=== PATIENT | male | born 1945 ===

== ENCOUNTER 2017-07-01 12:55 | Emergency (ER) | payer MEDICARE ==
[~2017-07-01] VITALS: Ht 182.9 cm; Wt 102.1 kg
[2017-07-01] MEDS ORDERED: LEVO-T175 MCG PO (13:04)
[2017-07-01] MEDS ORDERED: ATOR20 PO (13:05)
[2017-07-01] MEDS ORDERED: METO100ER PO (13:05)
[2017-07-01] MEDS ORDERED: INSULANPEN SC (13:05)
[2017-07-01] MEDS ORDERED: Dyazide 37.5-21 EACH PO (13:05)
[2017-07-01] MEDS ORDERED: Metformin HCl1000 MG PO (13:05)
[2017-07-01] MEDS ORDERED: BUTALB-ACETAMI1 EAC2 PO (13:05)
[2017-07-01] MEDS ORDERED: GLIP10ER PO (13:06)
[2017-07-01] MEDS ORDERED: AMLO5 PO (13:06)
[2017-07-01] MEDS ORDERED: Valium5 MG PO (13:41)
[2017-07-01] MEDS ORDERED: Norco 5-325 Ta1 EACH PO (13:41)
[2017-07-01] MEDS ORDERED: HYDCOR10 PO (13:42)
== END 2017-07-01 14:00 | disposition home or self-care (01) ==
LOC: ER 12:55
DX: G89.29 Other chronic pain (principal); M54.5 Low back pain; E11.9 Type 2 diabetes mellitus without complications; I10 Essential (primary) hypertension; F41.9 Anxiety disorder, unspecified; E78.00 Pure hypercholesterolemia, unspecified; G43.909 Migraine, unspecified, not intractable, without status migrainosus; E03.9 Hypothyroidism, unspecified; Z88.2 Allergy status to sulfonamides; Z79.4 Long term (current) use of insulin; Z79.899 Other long term (current) drug therapy; Z96.652 Presence of left artificial knee joint
CPT/HCPCS: 96372; 99283; J1885

== ENCOUNTER 2017-07-12 10:41 | Emergency (ER) | payer MEDICARE ==
[~2017-07-12] VITALS: Ht 182.9 cm; Wt 102.1 kg
[~2017-07-12 10:41] MED LIST: AMLO5 PO; ATOR20 PO; BUTALB-ACETAMI1 EAC2 PO; Dyazide 37.5-21 EACH PO; GLIP10ER PO; HYDCOR10 PO; INSULANPEN SC; LEVO-T175 MCG PO; METO100ER PO; Metformin HCl1000 MG PO; Norco 5-325 Ta1 EACH PO; Valium5 MG PO
[2017-07-12] MEDS ORDERED: Prednisone20 MG PO (12:45)
[2017-07-12] MEDS ORDERED: Norco 5-325 Ta1 EACH PO (12:45)
== END 2017-07-12 13:31 | disposition home or self-care (01) ==
LOC: ER 10:41
DX: M54.16 Radiculopathy, lumbar region (principal); Z88.2 Allergy status to sulfonamides; Z79.899 Other long term (current) drug therapy; Z79.84 Long term (current) use of oral hypoglycemic drugs; Z79.4 Long term (current) use of insulin; E11.9 Type 2 diabetes mellitus without complications; I10 Essential (primary) hypertension; E78.00 Pure hypercholesterolemia, unspecified; F41.9 Anxiety disorder, unspecified; G43.909 Migraine, unspecified, not intractable, without status migrainosus
CPT/HCPCS: 96372; 99283; J1885

== ENCOUNTER → 2018-08-07 | Outpatient (CLI) | payer MEDICARE ==
[~2018-08-07] MED LIST changes: +Prednisone20 MG PO
== END | disposition home or self-care (01) ==
LOC: PLD 13:36 → LAB SHORT 13:36
DX: C43.61 Malignant melanoma of right upper limb, including shoulder (principal); D22.62 Melanocytic nevi of left upper limb, including shoulder
CPT/HCPCS: 88305

== ENCOUNTER → 2018-08-27 | Outpatient (CLI) | payer MEDICARE | END | disposition home or self-care (01) | LOC: LAB SHORT 07:48 → PLD 07:48 | DX: D22.62 Melanocytic nevi of left upper limb, including shoulder (principal) | CPT/HCPCS: 88305 ==

== ENCOUNTER 2020-06-15 18:42 | Emergency (ER) | payer MEDICARE ==
[~2020-06-15] VITALS: Ht 182.9 cm; Wt 106.6 kg
[~2020-06-15 18:42] MED LIST changes: -AMLO5 PO; -ATOR20 PO; -BUTALB-ACETAMI1 EAC2 PO; -Dyazide 37.5-21 EACH PO; -LEVO-T175 MCG PO; -METO100ER PO; -Metformin HCl1000 MG PO
[2020-06-15 20:48] LABS: BASOPHILS ABSOLUTE AUTO 0.01 K/mm3 (0.00-0.23); BASOPHILS PERCENT AUTO 0 % (0-2); EOSINOPHILS PERCENT AUTO 0 % (0-6); Hematocrit 39.7 % (37.0-53.0); Hemoglobin 13.9 g/dL (13.5-17.5); IMMATURE GRAN ABSOLUTE AUTO 0.04 K/mm3 (0.00-0.10); IMMATURE GRAN PERCENT AUTO 1 % (0-1); LYMPHOCYTES ABSOLUTE AUTO 0.99 K/mm3 (0.84-5.20); LYMPHOCYTES PERCENT AUTO 12 % (21-46); MONOCYTES ABSOLUTE AUTO 0.58 K/mm3 (0.16-1.47); MONOCYTES PERCENT AUTO 7 % (4-13); Mean Corpuscular HGB 31.5 pg (26.0-34.0); Mean Corpuscular Volume 90 fL (80-100); NEUTROPHILS ABSOLUTE AUTO 6.85 K/mm3 (1.96-9.15); NEUTROPHILS PERCENT AUTO 81 % (41-73); Platelet Count 129 K/mm3 (150-400); RDW Coefficient Variation 12.9 % (11.7-14.2); RDW Standard Deviation 42.6 fL (35.1-46.3); Red Blood Cell Count 4.41 M/mm3 (4.30-5.90); White Blood Cell Count 8.47 K/mm3 (4.00-11.30)
[2020-06-15] MEDS ORDERED: SILD25T PO (20:49)
[2020-06-15 21:04] LABS: Alanine Aminotransfer (ALT/SGP 28 U/L (12-78); Albumin, Blood 3.2 g/dL (3.4-5.0); Albumin/Globulin Ratio 0.8 (0.8-1.8); Alk Phos 93 U/L (50-136); Anion Gap 11 mmol/L (6-16); Aspartate Aminotrans (AST/SGOT 15 U/L (12-37); Bilirubin, Total 0.6 mg/dL (0.1-1.0); Blood Urea Nitrogen 18 mg/dL (8-24); Bun/Creatinine Ratio 25.6 (12.0-20.0); CO2, Blood 25 mmol/L (21-32); Calcium, Blood 9.2 mg/dL (8.5-10.1); Chloride, Blood 96 mmol/L (98-108); Globulin, Blood 4.1 g/dL (2.2-4.0); Glomerular Filtration Rate >60 (60-); Glucose, Blood 219 mg/dL (70-99); Potassium, Blood 3.3 mmol/L (3.5-5.5); Sodium, Blood 132 mmol/L (136-145); Total Protein, Blood 7.3 g/dL (6.4-8.2)
[2020-06-15 22:27] LABS: Source, Urine Voided
[2020-06-15 22:31] LABS: Bilirubin, Urine Neg (Neg); Blood, Urine Neg (Neg); Glucose Qualitative, Urine 2+ (Neg); Ketones, Urine 1+ (Neg); Leukocyte Esterase, Urine Neg (Neg); Nitrite, Urine Neg (Neg); Protein, Urine 2+ (Neg); Specific Gravity, Urine 1.005 (1.003-1.022); Urobilinogen, Urine NORM (Normal)
[2020-06-15 22:34] LABS: Appearance, Urine Clear (Clear); Color, Urine Yellow (P-Yellow)
[2020-06-15 22:44] LABS: Amorphous Light (0-Heavy); Bacteria Not Seen /hpf; Red Blood Cells, Urine Not Seen /hpf (0-2); Squamous Epithelial Cells Not Seen /hpf (Few); White Blood Cells, Urine Not Seen /hpf (0-5)
[2020-06-16] MEDS ORDERED: Zithromax250 MG PO (01:01)
[2020-06-16] MEDS ORDERED: OMEP20ER PO (01:01)
== END 2020-06-16 01:28 | disposition home or self-care (01) ==
LOC: ER 18:42
PROVIDERS: Emergency Medicine
DX: U07.1 COVID-19 (principal); J12.82 Pneumonia due to coronavirus disease 2019; K29.80 Duodenitis without bleeding; E27.9 Disorder of adrenal gland, unspecified; E11.65 Type 2 diabetes mellitus with hyperglycemia; E87.6 Hypokalemia; I10 Essential (primary) hypertension; E78.5 Hyperlipidemia, unspecified; E03.9 Hypothyroidism, unspecified; R91.8 Other nonspecific abnormal finding of lung field; R79.89 Other specified abnormal findings of blood chemistry; Z79.4 Long term (current) use of insulin; Z79.899 Other long term (current) drug therapy; Z88.2 Allergy status to sulfonamides; Z79.52 Long term (current) use of systemic steroids
CPT/HCPCS: 36415; 71045; 74177; 76705; 80053; 81001; 83605; 83690; 85025; 87040; 96361; 96365; 96366; 96367; 96368; 96375; 99285-25; A9270; J0456; J0696; J2405; J3480; J7030; J7050; Q9967

== ENCOUNTER 2020-06-18 14:07 | Inpatient (IN) | payer MEDICARE ==
[~2020-06-18] VITALS: Ht 182.9 cm; Wt 102.1 kg
[~2020-06-18 14:07] MED LIST changes: +OMEP20ER PO; +SILD25T PO; +Zithromax250 MG PO
[2020-06-18 14:58] LABS: BASOPHILS ABSOLUTE AUTO 0.02 K/mm3 (0.00-0.23); BASOPHILS PERCENT AUTO 0 % (0-2); EOSINOPHILS ABSOLUTE AUTO 0.01 K/mm3 (0.00-0.68); EOSINOPHILS PERCENT AUTO 0 % (0-6); Hematocrit 39.8 % (37.0-53.0); Hemoglobin 14.2 g/dL (13.5-17.5); IMMATURE GRAN ABSOLUTE AUTO 0.11 K/mm3 (0.00-0.10); IMMATURE GRAN PERCENT AUTO 1 % (0-1); LYMPHOCYTES PERCENT AUTO 8 % (21-46); MONOCYTES ABSOLUTE AUTO 0.73 K/mm3 (0.16-1.47); MONOCYTES PERCENT AUTO 5 % (4-13); Mean Corpuscular HGB 32.4 pg (26.0-34.0); Mean Corpuscular HGB Conc 35.7 g/dL (31.5-36.5); Mean Corpuscular Volume 91 fL (80-100); Mean Platelet Volume 10.1 fL (9.1-12.4); NEUTROPHILS ABSOLUTE AUTO 11.55 K/mm3 (1.96-9.15); NEUTROPHILS PERCENT AUTO 86 % (41-73); Platelet Count 200 K/mm3 (150-400); RDW Coefficient Variation 12.8 % (11.7-14.2); Red Blood Cell Count 4.38 M/mm3 (4.30-5.90); White Blood Cell Count 13.42 K/mm3 (4.00-11.30)
[2020-06-18 15:19] LABS: Alanine Aminotransfer (ALT/SGP 36 U/L (12-78); Albumin, Blood 3.1 g/dL (3.4-5.0); Albumin/Globulin Ratio 0.7 (0.8-1.8); Alk Phos 93 U/L (50-136); Anion Gap 10 mmol/L (6-16); Aspartate Aminotrans (AST/SGOT 42 U/L (12-37); Bilirubin, Total 0.7 mg/dL (0.1-1.0); Blood Urea Nitrogen 17 mg/dL (8-24); Bun/Creatinine Ratio 20.1 (12.0-20.0); CO2, Blood 26 mmol/L (21-32); Calcium, Blood 9.6 mg/dL (8.5-10.1); Chloride, Blood 93 mmol/L (98-108); Creatinine, Blood 0.85 mg/dL (0.60-1.20); Globulin, Blood 4.6 g/dL (2.2-4.0); Glomerular Filtration Rate >60 (60-); Glucose, Blood 183 mg/dL (70-99); Potassium, Blood 3.1 mmol/L (3.5-5.5); Sodium, Blood 129 mmol/L (136-145); Total Protein, Blood 7.7 g/dL (6.4-8.2)
[2020-06-18] MEDS ORDERED: OMEP20ER PO (17:38)
[2020-06-18] MEDS ORDERED: LEVEMIR100 UNIT/1 SC (17:38)
[2020-06-18] MEDS ORDERED: HUMALOG KW100 UNIT/1 SC (17:38)
[2020-06-18] MEDS ORDERED: METO100ER PO (17:52)
[2020-06-18] MEDS ORDERED: LEVO-T175 MCG PO (17:52)
[2020-06-18] MEDS ORDERED: GLUCOPHAGE1000 M1 PO (17:53)
[2020-06-18] MEDS ORDERED: Dyazide 37.5-21 EACH PO (17:54)
[2020-06-18] MEDS ORDERED: BUTALB-ACETAMI1 EAC5 PO (17:54)
[2020-06-18] MEDS ORDERED: AMLO5 PO (17:54)
[2020-06-18] MEDS ORDERED: GABA300 PO (17:54)
[2020-06-18] MEDS ORDERED: ATOR20 PO (17:54)
[2020-06-18] MEDS ORDERED: Aspir 8181 MG PO (17:55)
[2020-06-18] MEDS ORDERED: LOSARTAN POTAS100 M1 PO (17:55)
[2020-06-18] MEDS ORDERED: POTA10T PO (17:56)
[2020-06-19 05:03] LABS: BASOPHILS ABSOLUTE AUTO 0.02 K/mm3 (0.00-0.23); BASOPHILS PERCENT AUTO 0 % (0-2); EOSINOPHILS PERCENT AUTO 0 % (0-6); Hematocrit 37.3 % (37.0-53.0); IMMATURE GRAN ABSOLUTE AUTO 0.11 K/mm3 (0.00-0.10); IMMATURE GRAN PERCENT AUTO 1 % (0-1); LYMPHOCYTES ABSOLUTE AUTO 1.07 K/mm3 (0.84-5.20); LYMPHOCYTES PERCENT AUTO 10 % (21-46); MONOCYTES ABSOLUTE AUTO 0.39 K/mm3 (0.16-1.47); MONOCYTES PERCENT AUTO 4 % (4-13); Mean Corpuscular HGB 31.7 pg (26.0-34.0); Mean Corpuscular HGB Conc 34.9 g/dL (31.5-36.5); Mean Corpuscular Volume 91 fL (80-100); Mean Platelet Volume 9.8 fL (9.1-12.4); NEUTROPHILS ABSOLUTE AUTO 9.03 K/mm3 (1.96-9.15); NEUTROPHILS PERCENT AUTO 85 % (41-73); Platelet Count 198 K/mm3 (150-400); RDW Coefficient Variation 12.8 % (11.7-14.2); RDW Standard Deviation 42.6 fL (35.1-46.3); White Blood Cell Count 10.62 K/mm3 (4.00-11.30)
--- NOTE | 2020-06-19 05:17 | NUR ---
SHIFT SUMMARY PT ARRIVED TO UNIT FROM ED VIA STRETCHER @ 1724. PT TRANSFERRED STAND/PIVOT TO BED. PT IS A&O X4, SBA/IND, USES URINAL AT BEDSIDE. MEDICATED X1 FOR HEADACHE, OTHERWISE NO OTHER COMPLAINTS THIS SHIFT. PT IS LAYING IN BED WITH EYES CLOSED, EVEN AND UNLABORED RESPIRATIONS. BED IN LOWERED POSITION WITH SIDE RAILS UP X2 FOR SAFETY. CALL LIGHT AND PERSONAL ITEMS WITH IN REACH. NO APPARENT NEEDS OR DISTRESS AT THIS TIME, WILL CONTINUE TO MONITOR UNTIL REPORT GIVEN TO DAY RN.
[2020-06-19 05:23] LABS: Anion Gap 9 mmol/L (6-16); Blood Urea Nitrogen 12 mg/dL (8-24); Bun/Creatinine Ratio 14.7 (12.0-20.0); CO2, Blood 27 mmol/L (21-32); Calcium, Blood 8.8 mg/dL (8.5-10.1); Chloride, Blood 96 mmol/L (98-108); Creatinine, Blood 0.82 mg/dL (0.60-1.20); Glomerular Filtration Rate >60 (60-); Glucose, Blood 169 mg/dL (70-99); Potassium, Blood 3.2 mmol/L (3.5-5.5); Sodium, Blood 132 mmol/L (136-145)
--- NOTE | 2020-06-19 08:00 | NUR ---
0730 JOE RT IN ROOM. PT HAD LOWER SATS . PLACED ON 4L O2. KEEPING OVER 92 %.. STARTED ON I/S AND FLUTTER VALVE. CALLED DR ORNELAS TO [facility]. SHE TO REVIEW. NO NEW ORDRES.
--- NOTE | 2020-06-19 08:30 | NUR ---
PT PLEASANT COOP A/O. LOVES TO TALK HUNTING CABIN IN [facility]. SHOWED ME PIX ON PHONE. DENIES PAIN AND . HR REG, NO MURMER NOTED. NO TELE. LUNGS DIM T/O WITH CRACKLES BASES BILAT. ON 4L O2 PER JOE. RT. TRAINED ON I/S AND FLUTTER VALVE. RESP EASY, UNLABORED. BT X4 LAST BM YEST. VOIDS PER URINAL. 1 ASST NEEDED. BED IN LOW POSITION, CALL LITE IN REACH, CALLS APPROP.
--- NOTE | 2020-06-19 10:25 | NUR ---
ADMIT:06/18/20 DISCHARGE: DX:Pneumonia due to COVID-19 virus, hypokalemia, hyponatremia, nausea/vomiting, diarrhea CC: JOEY CALL: RESIDENCE: Home with Spouse CAREGIVER: Jeanna Coker, Spouse / Partner, Fátima Coker Sister In Law, Family Member, DX: COVID-19; CVA, HTN, see list DME: DM supplies CCM: none HOME HEALTH: none SUMMARY: 06/19/20- per chart review with Dr. Connor, pt came in due to inability to keep food down. He has since developed a need for O2 and is currently on 4L due to hypoxia related to COVID. Doctor will be add steroid treatment today. Est. ETA for d/c will be sometime this weekend as long as pt's need for O2 does not increase. -kjw 1: Pneumonia due to COVID-19 virus A/P: Patient is not hypoxic so does not need COVID-a9 medications at this time. Patient was initially diagnosed on the , no improvement since then concerning for superimposed bacterial infection. Procalcitonin 0.11. Patient meets sepsis criteria with lactic acid at 2.1, white blood cells 13.42. - Continuous pulse oximetry - Ceftriaxone and azithromycin IV for now, patient has not been able to keep down his azithromycin pills he was sent home on 3 days ago. - Blood cultures obtained - Sepsis focused exam has been performed - IV fluids 30 cc/kg - Droplet isolation 2: Hypokalemia A/P: Along with hyponatremia and hypophosphatemia. Mg WNL. Due to N/V/D. - Replaced - BMP in AM - Aggressive nausea control - IV hydration 3: Diarrhea A/P: - GI panel - IV hydration 4: Hypothyroidism A/P: - Continue home medications 5: GERD (gastroesophageal reflux disease) A/P: - Pepcid IV BID, change to PO once able to keep meds down 6: Essential hypertension A/P: - Hold home BIRGIT inhibitor and dyazide due to hypovolemia - Continue home metoprolol and amlodipine 7: T2DM (type 2 diabetes mellitus) A/P: - Continue home levemir. - Blood glucose checks and low sliding scale subcutaneous Humalog before meals - As needed hypoglycemia treatment - Diabetic diet - Hold home oral agents while in hospital 8: Prophylactic use of low molecular weight heparin for venous thromboembolism
--- NOTE | 2020-06-19 16:12 | NUR ---
SAT IN ROOM AND VISITED WITH ON PHONE AND WITH HIM ABOUT MIKI ASTORGA
--- NOTE | 2020-06-19 16:23 | NUR ---
PT PLEASANT TODAY. I NOTE THAT SATS ARE MOSTLY ABOVE 94 % ON 4L O2. ENCOURAGED TO CONTINUE USE OF I/S AND FLUTTER. WE VISITED COUPLE TIMES ABOUT HUNTING . [facility]. SPOKE TO HIS FOR UPDATE. SHE STATES HE SLOWER MENTATION THAN NORMAL. NO OTHER CONCERNS NOTED TODAY. BED IN LOW POSITION, CALL LITE IN REACH, CALLS APPROP
--- NOTE | 2020-06-20 07:37 | NUR ---
SHIFT SUMMARY: PATIENT IS A&OX3, LUNGS ARE CLEAR BUT DIMINISHED AT BASES. SATS ARE 90-95% ON 4L NC, 88% ON RA AFTER AMB. TO THE BATHROOM, VSS. UP TO THE BATHROOM WITH A STAND BY ASSIST TO VOID. NO COMPLAINTS OF PAIN, BED ALARM IS ON FOR SAFETY.
[2020-06-20 08:53] LABS: Anion Gap 8 mmol/L (6-16); Blood Urea Nitrogen 18 mg/dL (8-24); Bun/Creatinine Ratio 24.1 (12.0-20.0); CO2, Blood 27 mmol/L (21-32); Calcium, Blood 9.1 mg/dL (8.5-10.1); Chloride, Blood 99 mmol/L (98-108); Creatinine, Blood 0.75 mg/dL (0.60-1.20); Glomerular Filtration Rate >60 (60-); Glucose, Blood 267 mg/dL (70-99); Potassium, Blood 3.5 mmol/L (3.5-5.5); Sodium, Blood 134 mmol/L (136-145)
--- NOTE | 2020-06-20 19:12 | NUR ---
SHIFT SUMMARY PT A/O X3; PLEASANT AND COOPERATIVE WITH CARE. INSULIN ADJUSTED TO HIGH SLIDING SCARE. STOOL SAMPLE NEEDED. PT CURRENTLY ON 5 LITERS O2 VIA NC. DYSPNEA ON EXERTION. DROPPED DOWN TO 88% WITH AMBULATION AND EXTENSIVE TALKING. SBA TO THE BATHROOM. VSS; WILL REPORT TO LABORER DRYING DEPARTMENT RN.
--- NOTE | 2020-06-21 06:53 | NUR ---
SHIFT SUMMARY: PATIENT IS A&OX4, CONTINUES TO REPORT HALLUCINATIONS BUT DESCRIBES THEM TO THIS DOG BOARDER WITH GREAT DETAIL LIKE HE WAS TELLING A STORY TO SOMEONE. BED ALARM REMAINS ON FOR SAFETY, PATIENT CALLS FOR ASSIST TO THE BATHROOM INSTRUCTED, FOR SAFETY. O2 WAS DECREASED TO 4L NC, MAINTAINS SATS 90-95%. AFTER AMBULATION SAT IS 95% ON 4L. PATIENT REQUESTED TO HAVE BLOOD GLUCOSE TAKEN WITH HIS GLUCOMETER DUE TO PAINFUL LANCETTS. PATIENT USED HIS OWN GLUCOMETER TO MEASURE HS GLUCOSE WHICH WAS 345, LONG ACTING INSULIN WAS GIVEN PER JUL. AFTER SPEAKING WITH PATIENT IT IS DECIDED THAT WE WILL USE THE [facility] GLUCOMETER AND HIS LANCETTS GOING FORWARD. ENHANCED ISOLATION PRECAUTIONS ARE MAINTAINED.
--- NOTE | 2020-06-21 12:41 | NUR ---
SUMMARY: 06/21/20- per chart review with Dr. Connor, pt's O2 needs have dropped to .5L. As long as the patient keeps progressing in a positive way, his ETA for d/c could be Monday or . -dirk
--- NOTE | 2020-06-21 19:42 | NUR ---
SHIFT SUMMARY PT A/O X3 PLEASANT AND COOPERATIVE WITH CARE. CURRENTLY ON 4 LITERS O2 VIA NC. SOMETIMES DE-SATS WITH AMBULATION. PT IS A SBA BUT UNSTEADY ON HIS FEET AT TIMES. PT REPORTS ODD HALLUCINATIONS AND DREAMS. TAKES HIS OWN BLOOD GLUCOSE WITH HIS HOME EQUIPMENT. VSS; REPORT GIVEN TO DOCUMENT MANAGEMENT SPECIALIST RN.
--- NOTE | 2020-06-22 06:02 | NUR ---
SHIFT SUMMARY: PATIENT IS A&OX4 BUT FORGETFUL AT TIMES. BP'S HAVE BEEN TRENDING UPWARDS, ENERGY ATTORNEY MD IS NOTIED AND ORDER TO RESTART [place], HOME MEDICATION WAS OBTAINED AND MED WAS GIVEN WITH GOOD EFFECT. PATIENT REQUESTED SEROQUEL FOR INSOMNIA AND MED WAS GIVEN. DURING THE NIGHT PATIENT WAS FOUND SETTING OFF BED ALARM, WITH GOWNED AND 02 OFF WITH SATS AT 85 ON RA. PATIENT TOOK ABOUT 5 MINUTES TO RECOVER UP TO 93% ON 4 L NC. PATIENT THEN TRIED TO USE URINAL AT BEDSIDE AND URINATED ON THE FLOOR. PATIENT IS NOW RESTING QUIETLY IN BED.
--- NOTE | 2020-06-22 16:55 | NUR ---
06/22/[address] Rivas, possible discharge today, patient still on oxygen, sats 92%. Not being seen by PT or OT. Dr Rivas ordered home oxygen evaluation today, s/w Jeanna by phone, she is covid positive, only symptom is a rash. She can pick him up from hospital, pharmacy has a drive up window. She is placeing a food order with Alistair Worthington to [employer] tommorrow. She would like for him to be able to get himself to the bathroom before returning home. Will continue to follow for discharge planning. cp
--- NOTE | 2020-06-22 18:30 | NUR ---
SHIFT SUMMARY- PT IS A/O, PLESANT AND COOPERATIVE. HE IS EATING AND DRINKING WELL. HE IS ON 4 L HUMIDIFIED O2. HE TOOK A SHOWER THIS SHIFT. PLANNING DISCHARGE TOMORROW, WILL RECIEVE A HOME O2 EVALUATION PRIOR TO DISCHARGE. HIS BED IS IN THE LOW POSITION AND CALL LIGHT IS WITHIN REACH.
--- NOTE | 2020-06-23 04:11 | NUR ---
RETAIL SERVICE REPRESENTATIVE SUMMARY PT WAS AXO X4 ALL SHIFT W O2 SATS >92 ON 2L VIA NC. PT CONTINUES TO USE IS AND FLUTTER DEVICE. PT DENIED ANY PAIN OR NAUSEA THIS SHIFT. SEROQUEL WAS NOT GIVEN THIS SHIFT AND PT HAD NO HALLUCINATIONS TONIGHT. PT EDUCATED ON MEDICATIONS AND NEED FOR INCREASED INSULIN HE WAS UPSET THAT HIS HOME DOSES WERE BEING CHANGED IN THE HOSPITAL. PT SLEEPING COMFORTABLY WITH CALL LIGHT WITHIN REACH. TM
[2020-06-23] MEDS ORDERED: PRED20 PO (13:05)
--- NOTE | 2020-06-23 15:00 | NUR ---
PT DISCHARGED FROM THE UNIT IV REMOVED. MEDICATIONS FAXED TO [facility]. INSTRUCTED ON OXYGEN USE. PT WAS TAKEN OFF THE UNIT VIA WHEEL CHAIR. HIS TO DRIVE HIM HOME.
--- NOTE | 2020-06-23 18:46 | NUR ---
06/23/20 Discharge home, to pick him up, pickling operator meds, oxygen delivered to hospital for transport 4 l/m rest, 6 l/m activity from [facility]. Discussed care coordination and Follow up appointment with by telephone, left litzy letter for with discharge packet. EFM to call Mon or for follow up and schedule appointment..cp
== END 2020-06-23 14:30 | disposition home or self-care (01) | DRG 177 ==
LOC: ER 14:07 → MEDS 19:01
PROVIDERS: Emergency Medicine; Family Medicine; Nurse Practitioner Acute Care; ADMIT Family Medicine
DX: U07.1 COVID-19 (principal); J12.82 Pneumonia due to coronavirus disease 2019; E87.1 Hypo-osmolality and hyponatremia; A08.39 Other viral enteritis; Z79.4 Long term (current) use of insulin; E87.6 Hypokalemia; E11.40 Type 2 diabetes mellitus with diabetic neuropathy, unspecified; I10 Essential (primary) hypertension; Z86.73 Personal history of transient ischemic attack (TIA), and cerebral infarction without residual deficits; E03.9 Hypothyroidism, unspecified
CPT/HCPCS: 36415; 71045; 80048; 80053; 82947; 83605; 83735; 84100; 84145; 85025; 85379; 86140; 87040; 87493; 94667; 94762; 96361; 96365; 96375; 96376; 99285-25; A9270; C9113; J0456; J0696; J1650; J2405; J2920; J3480; J7030; J7050; J7060; J7512

== ENCOUNTER → 2020-07-07 | Outpatient (CLI) | payer MEDICARE ==
[~2020-07-07] MED LIST changes: +AMLO5 PO; +ATOR20 PO; +Aspir 8181 MG PO; +BUTALB-ACETAMI1 EAC5 PO; +Dyazide 37.5-21 EACH PO; +GABA300 PO; +GLUCOPHAGE1000 M1 PO; +HUMALOG KW100 UNIT/1 SC; +LEVEMIR100 UNIT/1 SC; +LEVO-T175 MCG PO; +LOSARTAN POTAS100 M1 PO; +METO100ER PO; +POTA10T PO; +PRED20 PO
== END | disposition home or self-care (01) ==
LOC: PLD 08:09 → LAB SHORT 08:09
DX: C44.311 Basal cell carcinoma of skin of nose (principal)
CPT/HCPCS: 88305

== ENCOUNTER → 2021-01-04 | Outpatient (CLI) | payer MEDICARE | END | disposition home or self-care (01) | LOC: LAB 08:40 → LAB SHORT 08:40 | DX: D22.62 Melanocytic nevi of left upper limb, including shoulder (principal); L82.1 Other seborrheic keratosis | CPT/HCPCS: 88305 ==

== ENCOUNTER → 2021-09-30 | Outpatient (CLI) | payer MEDICARE | END | disposition home or self-care (01) | LOC: PLD 10:52 → LAB SHORT 10:52 | DX: C44.319 Basal cell carcinoma of skin of other parts of face (principal) | CPT/HCPCS: 88305 ==

== ENCOUNTER → 2023-05-10 | Outpatient (CLI) | payer MEDICARE | LOC: LAB 12:09 → LAB SHORT 12:09 | DX: C44.319 Basal cell carcinoma of skin of other parts of face (principal) | CPT/HCPCS: 88305 ==